=== PATIENT | female | born 1975 | race Caucasian/White ===

== ENCOUNTER 2016-11-19 17:29 | Emergency (ER) | payer OTHER | END 2016-11-19 18:24 | disposition home or self-care (01) | LOC: FER 17:29 | DX: Z48.02 Encounter for removal of sutures (principal); R51 Headache; F31.9 Bipolar disorder, unspecified; F17.200 Nicotine dependence, unspecified, uncomplicated; Z88.2 Allergy status to sulfonamides; Z79.899 Other long term (current) drug therapy | CPT/HCPCS: 99283 ==

== ENCOUNTER 2021-06-18 22:13 | Emergency (ER) | payer OTHER ==
[~2021-06-18 22:13] MED LIST: PERCOCET 5-3251 EACH PO; ZOFRAN4 MG SL
[2021-06-19] MEDS ORDERED: MOBIC7.5 MG PO (01:38)
[2021-06-19] MEDS ORDERED: MEDROL 4MG DOSEP4 MG PO (01:38)
[2021-06-19] MEDS ORDERED: PERCOCET 5-3251 EACH PO (01:38)
== END 2021-06-19 02:01 | disposition home or self-care (01) ==
LOC: FER 22:13
DX: M25.562 Pain in left knee (principal); M25.462 Effusion, left knee; F17.210 Nicotine dependence, cigarettes, uncomplicated; Z98.890 Other specified postprocedural states; Z88.2 Allergy status to sulfonamides; Z88.6 Allergy status to analgesic agent
CPT/HCPCS: 73564; 96372; J1100; J1170; J1885

== ENCOUNTER 2022-06-08 09:44 | Emergency (ER) | payer OTHER ==
[~2022-06-08 09:44] MED LIST changes: +MEDROL 4MG DOSEP4 MG PO; +MOBIC7.5 MG PO
[2022-06-08] MEDS ORDERED: AMOX TR-K CLV1 EAC4 PO (12:23)
[2022-06-08] MEDS ORDERED: ULTRAM50 MG PO (12:23)
== END 2022-06-08 13:20 | disposition home or self-care (01) ==
LOC: FER 09:44
DX: L03.011 Cellulitis of right finger (principal); F17.210 Nicotine dependence, cigarettes, uncomplicated; Z88.2 Allergy status to sulfonamides

== ENCOUNTER 2022-06-11 17:10 | Emergency (ER) | payer OTHER ==
[~2022-06-11 17:10] MED LIST changes: +AMOX TR-K CLV1 EAC4 PO; +ULTRAM50 MG PO
[2022-06-11 20:27] LABS: BASOPHIL 0.5 % (0-2); EOSINOPHIL 3.1 % (0-5); HCT 38.2 % (37.0-47.0); HGB 12.5 g/dl (12.5-16.0); MCH 29.1 pg (25.0-31.0); MCHC 32.7 g/dL (32.0-36.0); MCV 88.8 fL (78.0-100.0); MONOCYTE 8.3 % (0-12); MPV 10.2 fL (6.0-9.5); NEUTROPHIL 46.6 % (41-80); NRBC 0; PLT 266 K/uL (150-400); RDW 11.8 % (11.5-14.0); WBC 9.6 K/uL (4.0-10.5)
[2022-06-11] MEDS ORDERED: PERCOCET 5-3251 EACH PO (21:22)
[2022-06-11] MEDS ORDERED: DIFLUCAN 100MG100 MG PO (21:22)
[2022-06-11] MEDS ORDERED: CLEOCIN300 MG PO (21:22)
== END 2022-06-11 21:50 | disposition home or self-care (01) ==
LOC: FER 17:10
PROVIDERS: Emergency Medicine
DX: L03.011 Cellulitis of right finger (principal); F17.210 Nicotine dependence, cigarettes, uncomplicated; Z88.2 Allergy status to sulfonamides; Z88.6 Allergy status to analgesic agent; Z28.310 Unvaccinated for COVID-19
CPT/HCPCS: 36415; 83605; 85025; 87070; 87077; 87186; 87205; 96372; J1885; J2405